=== PATIENT | female | born 1990 | race Caucasian/White ===

== ENCOUNTER 2017-06-04 12:18 | Inpatient (IN) | payer BC, OTHER ==
[2017-06-04] VITALS (48 sets, daily range): BP systolic 87–174; BP diastolic 55–101
[~2017-06-04] VITALS: Ht 165.1 cm; Wt 66.0 kg
[2017-06-04] MEDS ORDERED: D5 LR IV SOLUTION 1,000 ML IV SCH (12:42)
[2017-06-04] MEDS ORDERED: fentaNYL INJECTION 100 MCG/2 ML AMP IVP PRN (12:45)
[2017-06-04] MEDS ORDERED: MINERAL OIL CONCENTRATE 99.9% 15 ML UDC TOP PRN (12:45)
[2017-06-04 13:11] LABS: BASOPHILS % (AUTO) 0 % (0-10); EOSINOPHILS % (AUTO) 0 % (0-10); LYMPHOCYTES # (AUTO) 2.2 X 10^3 (1.0-4.0); LYMPHOCYTES % (AUTO) 15 % (12-44); MEAN CORPUSCULAR HEMOGLOBIN 33 PG (25-34); MEAN CORPUSCULAR HGB CONC 34 G/DL (32-36); MEAN CORPUSCULAR VOLUME 95 FL (80-99); MEAN PLATELET VOLUME 10.1 FL (7.4-10.4); MONOCYTES # (AUTO) 1.1 X 10^3 (0.0-1.0); MONOCYTES % (AUTO) 8 % (0-12); NEUTROPHILS # (AUTO) 11.2 X 10^3 (1.8-7.8); NEUTROPHILS % (AUTO) 77 % (42-75); PLATELET COUNT 239 10^3/uL (130-400); RED BLOOD COUNT 3.78 10^6/uL (4.35-5.85); RED CELL DISTRIBUTION WIDTH 12.9 % (10.0-14.5); WHITE BLOOD COUNT 14.5 10^3/uL (4.3-11.0)
[2017-06-04] MEDS ORDERED: SUFENTA 0.6MCG/ML BUPIVA 0.125 100 ML ONE (13:37)
[2017-06-04 13:56] LABS: BAND NEUTROPHILS 3 %; BASOPHILS % (MANUAL) 0 %; EOSINOPHILS % (MANUAL) 0 %; LYMPHOCYTES % (MANUAL) 14 %; MYELOCYTES % 1 %; NEUTROPHILS % (MANUAL) 76 %
[2017-06-04] MEDS ORDERED: CATHETER FLUSH 10 ML SYR IV SCH (14:00)
[2017-06-04] MEDS ORDERED: LIDOCAINE PF 2% 5 ML (XYLOCAINE) VIAL ONE (14:06)
[2017-06-04] MEDS ORDERED: BUPIVACAINE 0.25% 30 ML (SENSORCAINE) VIAL ONE (14:06)
[2017-06-04] MEDS ORDERED: fentaNYL INJECTION 100 MCG/2 ML AMP ONE (14:06)
--- NOTE | 2017-06-04 14:19 | History & Physical-OB ---
OB - Chief Complaint & HPI Date/Time Date of Admission: Date of Admission: Jun 04, 2017 at 12:40 Time Seen by Provider: 14:00 Chief Complaint/History OB-Reason for Admission/Chief: Onset of Labor Hx : 2 Hx Para: 0 Expected Date of Delivery: Jun 05, 2017 Gestational Age in Weeks: 39 Gestational Age in Days: 6 Other reason for admission: Jennyfer is a 26 y/o @ 39w6d who presents in early labor. Has had CTX off/on all night and then returned this AM, every 3 mins upon admission. No LOF VB. Fetus is active. uncomplicated. History of Labs A+ Antibody neg RI Hep B neg Hep C neg HIV neg RPR NR GC/CT neg/neg GBS neg Allergies and Home Medications Allergies Coded Allergies: Penicillins (Verified Allergy, Unknown, 06/04/17) tramadol (Verified Allergy, Unknown, 06/04/17) OB - History Hx of Present Care: Yes Ultrasounds: Normal mid trimester US Obstetrical Complications: Other (anemia (on iron)) Medical Complications: None Information Induced Hypertension: No Maternal Gestational Diabetes: No Hemorrhage: No Obstetrical History Hx : 2 Hx Para: 0 Hx Termination: Yes Patient Past Medical History non-contributory Social History/Family History HIV/AIDS: No Recent Infectious Disease Expo: No Alcohol Use: Denies Use Smoking Cessation: Never smoker Immunizations Tetanus Booster (TDap): Less than 5yrs Rubella: immune RPR/VDRL: Negative GBS Status: Negative HBsAG: Negative OB - Admission Exam Physical Exam Time Seen by Provider: 14:00 Vitals: see gun examiner HEENT: NCAT Cervical Dilatation: 2cm Effacement: 100% Station: -1 Membranes: Intact Heart Rate: 130's Accelerations: Accelerations Present Decelerations: No Decelerations Short Term Variability: Present Fdc Variability: Average (6-25) Contractions on Admission: < 5 Minutes Apart Labs Laboratory Tests Test 06/04/17 13:00 Range/Units White Blood Count 14.5 H 4.3-11.0 10^3/uL Red Blood Count 3.78 L 4.35-5.85 10^6/uL Hemoglobin 12.3 11.5-16.0 G/DL Hematocrit 36 35-52 % Mean Corpuscular Volume 95 80-99 FL Mean Corpuscular Hemoglobin 33 25-34 PG Mean Corpuscular Hemoglobin Concent 34 32-36 G/DL Red Cell Distribution Width 12.9 10.0-14.5 % Platelet Count 239 130-400 10^3/uL Mean Platelet Volume 10.1 7.4-10.4 FL Neutrophils (%) (Auto) 77 H 42-75 % Lymphocytes (%) (Auto) 15 12-44 % Monocytes (%) (Auto) 8 0-12 % Eosinophils (%) (Auto) 0 0-10 % Basophils (%) (Auto) 0 0-10 % Neutrophils # (Auto) 11.2 H 1.8-7.8 X 10^3 Lymphocytes # (Auto) 2.2 1.0-4.0 X 10^3 Monocytes # (Auto) 1.1 H 0.0-1.0 X 10^3 Eosinophils # (Auto) 0.0 0.0-0.3 10^3/uL Basophils # (Auto) 0.0 0.0-0.1 10^3/uL Neutrophils % (Manual) 76 % Lymphocytes % (Manual) 14 % Monocytes % (Manual) 6 % Eosinophils % (Manual) 0 % Basophils % (Manual) 0 % Myelocytes % 1 % Band Neutrophils 3 % Blood Morphology Comment NORMAL OB - Assessment/Plan/Diagnosis Plan Other Plan 26 y/o @ 39w6d with active labor, GBS neg Rh+ RI Anemia on iron, Hgb 12.3 upon admission Epidural for analgesia per pt request Will plan to [facility] for augmentation ASVD Peds Dr. Ng in [place], will need rn lactation consultant no-local provider for peds care PRISCILLA BRENNAN MD Jun 04, 2017 14:19
[2017-06-04] MEDS ORDERED: LACTATED RINGERS 1,000 ML IV ONE (14:38)
[2017-06-04] MEDS ORDERED: ONDANSETRON 4 MG/2 ML (SDV) Z0FRAN IV PRN (14:45)
[2017-06-04] MEDS ORDERED: NALOXONE 0.4 MG/ML 1 ML (NARCAN) VIAL IV PRN (14:45)
[2017-06-04] MEDS ORDERED: EPIDURAL (SUFENTA 0.6MCG/ML BUPIVA 0.125%) 100 ML BAG EPI SCH (14:45)
[2017-06-04] MEDS ORDERED: CATHETER FLUSH 10 ML SYR IV PRN (14:45)
[2017-06-04] MEDS ORDERED: diphenhydrAMINE 50 MG/ML INJ (BENADRYL) IV PRN (14:45)
[2017-06-04] MEDS ORDERED: OXYTOCIN/NORMAL SALINE 500 ML IV ONE ×2 (15:35→20:52)
[2017-06-04] MEDS ORDERED: LIDOCAINE/EPI 1%-1:200,000 (XYLOCAINE) 30 ML VIAL ONE (15:35)
[2017-06-04] MEDS ORDERED: TERBUTALINE INJ 1 MG/ML (BRETHINE) AMP ONE (16:55)
[2017-06-04] MEDS ORDERED: FAMOTIDINE 20MG/2ML IV (PEPCID) IVP ONE (19:15)
[2017-06-04] MEDS ORDERED: LACTATED RINGERS 1,000 ML IV SCH (20:30)
[2017-06-04] MEDS: OXYTOCIN/NORMAL SALINE 500 ML IV SCH ×2 (20:38→21:10)
--- NOTE | 2017-06-04 20:57 | OB Labor & Delivery Record ---
Vag Delivery Note Vag Delivery Note Date of Delivery: 06/04/17 Preoperative Diagnosis: Jennyfer Nagel is a 26 y/o @ 39w6d with active labor, GBS neg Postoperative Diagnosis: Same Surgeon: Priscilla Guzman MD Anesthesia: Epidural Delivery Type: Spontaneous vaginal delivery Findings: Viable male , apgars 9/9, weight 8lb2oz Lacerations: first degree perineal, right labial Intact placenta with 3 vessel cord. No nuchal cord, body cord or shoulder dystocia Estimated Blood Loss: 400 ml Complications: None Condition: Stable Description of Procedure: The patient is a 26 y/o who presented @ 39w6d with contractions and found to be in active labor. She was admitted and informed consent was obtained. Her labor course was remarkable for [facility] with clear fluid and epidural for analgesia. She progressed to complete dilatation and began to push. She was then set up for delivery. The infant's head was delivered atraumatically in the occiput anterior position. The shoulders and remainder of the infant's body were then delivered without difficulty. Upon delivery, the head was held below the level of the perineum and the mouth and nares were bulb suctioned. The cord was doubly clamped and cut after a pause of 30-60 seconds while on the mother's abdomen. An intact placenta with 3-vessel cord delivered via [place] and there was found to be minimal bleeding. Vigorous fundal massage was performed and the fundus was found to be firm. IV oxytocin was given. Examination of the vagina and perineum revealed a small first degree perineal laceration and right labial laceration repaired in the usual fashion with 3-0 vicryl suture. Following the repair, sponge, instrument and needle counts were correct. Mom and baby were both in stable condition in the labor suite. Vitals - Labs Vital Signs - I&O Vital Signs Date Time Temp Pulse Resp B/P (MAP) Pulse Ox O2 Delivery O2 Flow Rate FiO2 06/04/17 18:55 83 18 118/64 100 Room Air 06/04/17 18:43 90 18 111/66 100 Non Rebreather 06/04/17 18:25 86 18 119/68 100 Non Rebreather 06/04/17 18:10 83 18 115/61 99 Room Air 06/04/17 17:56 98.0 85 18 120/66 99 Room Air 7/8/17 17:40 96 18 125/67 99 Room Air 7/8/17 17:25 96 18 123/72 100 Room Air 7/8/17 17:10 96 18 130/72 Room Air 7/8/17 16:55 98 18 119/74 98 Room Air 7/8/17 16:41 98 18 119/74 98 Room Air 7/8/17 16:25 94 18 116/71 98 Room Air 7/8/17 16:11 99 18 119/78 99 Room Air 7/8/17 15:52 97.9 90 18 116/74 98 Room Air 7/8/17 15:42 89 18 128/67 99 Room Air 7/8/17 15:39 91 18 128/74 Room Air 7/8/17 15:35 90 18 118/76 97 Room Air 7/8/17 15:23 90 18 126/75 99 Room Air 7/8/17 15:17 87 18 135/84 99 Room Air 7/8/17 15:12 95 18 135/74 99 Room Air 7/8/17 15:07 85 18 128/72 100 Room Air 7/8/17 15:02 91 18 121/80 100 Room Air 7/8/17 14:59 89 18 115/72 98 Room Air 7/8/17 14:56 85 18 119/76 98 Room Air 7/8/17 14:52 87 18 121/72 98 Room Air 7/8/17 14:50 90 18 125/71 98 Room Air 7/8/17 14:48 88 18 123/70 98 Room Air 7/8/17 14:45 86 18 121/66 Room Air 7/8/17 14:42 85 18 119/66 97 Room Air 7/8/17 14:38 89 18 117/65 98 Room Air 7/8/17 14:32 95 18 122/75 98 Room Air 7/8/17 14:26 100 18 143/85 100 Room Air 8/17 14:05 99 22 138/89 78/17 13:35 117 22 138/101 78/17 13:05 100 18 128/79 7/8/17 12:35 98.6 105 18 126/78 Labs Laboratory Tests 06/04/17 13:00: White Blood Count 14.5H, Red Blood Count 3.78L, Hemoglobin 12.3, Hematocrit 36, Mean Corpuscular Volume 95, Mean Corpuscular Hemoglobin 33, Mean Corpuscular Hemoglobin Concent 34, Red Cell Distribution Width 12.9, Platelet Count 239, Mean Platelet Volume 10.1, Neutrophils (%) (Auto) 77H, Lymphocytes (%) (Auto) 15 , Monocytes (%) (Auto) 8, Eosinophils (%) (Auto) 0, Basophils (%) (Auto) 0, Neutrophils # (Auto) 11.2H, Lymphocytes # (Auto) 2.2, Monocytes # (Auto) 1.1H, Eosinophils # (Auto) 0.0, Basophils # (Auto) 0.0, Neutrophils % (Manual) 76, Lymphocytes % (Manual) 14, Monocytes % (Manual) 6, Eosinophils % (Manual) 0, Basophils % (Manual) 0, Myelocytes % 1, Band Neutrophils 3, Blood Morphology Comment NORMAL PRISCILLA GUZMAN MD Jun 04, 2017 20:57
[2017-06-04] MEDS ORDERED: HYDROcodone/APAP 5 MG/325 MG (LORTAB) TAB PO PRN (22:15)
[2017-06-04] MEDS ORDERED: WITCH HAZEL(TUCKS) 40 EA JAR TOP PRN (22:15)
[2017-06-04] MEDS ORDERED: BENZOCAINE/MENTHOL (DERMOPLAST) 56 ML CAN TP PRN (22:15)
[2017-06-04] MEDS: IBUPROFEN 600 MG (MOTRIN) TAB PO SCH (22:24)
[2017-06-05 04:00] VITALS: BP 97/56
[2017-06-05] MEDS: IBUPROFEN 600 MG (MOTRIN) TAB PO SCH ×4 (04:06→23:01)
[2017-06-05] MEDS ORDERED: CATHETER FLUSH 10 ML SYR IV SCH (06:00)
[2017-06-05 07:11] LABS: BASOPHILS % (AUTO) 0 % (0-10); EOSINOPHILS % (AUTO) 0 % (0-10); LYMPHOCYTES % (AUTO) 10 % (12-44); MEAN CORPUSCULAR HEMOGLOBIN 32 PG (25-34); MEAN CORPUSCULAR HGB CONC 34 G/DL (32-36); MEAN CORPUSCULAR VOLUME 96 FL (80-99); MONOCYTES % (AUTO) 10 % (0-12); NEUTROPHILS # (AUTO) 15.7 X 10^3 (1.8-7.8); NEUTROPHILS % (AUTO) 80 % (42-75); PLATELET COUNT 200 10^3/uL (130-400); RED BLOOD COUNT 3.24 10^6/uL (4.35-5.85); RED CELL DISTRIBUTION WIDTH 12.6 % (10.0-14.5); WHITE BLOOD COUNT 19.7 10^3/uL (4.3-11.0)
--- NOTE | 2017-06-05 07:32 | Anesthesia-Regional Post-Op ---
Regional Patient Condition Mental Status: Alert, Oriented x3 Circulation: Same as Pre-Op Headache: Absent Sensation: Full Recovery Motor Block: Absent Post Op Complications Complications None Follow Up Care/Instructions Patient Instructions None needed. Anesthesia/Patient Condition Patient is doing well, no complaints, stable vital signs, no apparent adverse anesthesia problems. No complications reported per nursing. [place] home [place] [facility] [place]: No LUIS GRANADOS CRNA Jun 05, 2017 07:32
[2017-06-05 08:00] VITALS: BP 113/67
[2017-06-05] MEDS: DOCUSATE SODIUM 100 MG (COLACE) CAP PO SCH ×2 (09:20→20:46)
[2017-06-05] MEDS: PRENATAL VITAMIN 1 EA TAB PO SCH (09:20)
--- NOTE | 2017-06-05 11:05 | Postpartum Progress Note ---
Note Note Day # 1 Subjective: Patient is without complaints. Ambulating, voiding. Tolerating a regular diet without nausea or vomiting. Normal lochia. Pain is well controlled with oral pain medications. Bottle feeding. Objective: VS - Last 72 Hours, by Label 06/04/17 06/04/17 06/04/17 06/04/17 12:35 13:05 13:35 14:05 Temp 98.6 Pulse 105 100 117 99 Resp 18 18 22 22 B/P (MAP) 126/78 128/79 138/101 138/89 06/04/17 06/04/17 06/04/17 06/04/17 14:26 14:32 14:38 14:42 Pulse 100 95 89 85 Resp 18 18 18 18 B/P (MAP) 143/85 122/75 117/65 119/66 Pulse Ox 100 98 98 97 O2 Delivery Room Air Room Air Room Air Room Air 06/04/17 06/04/17 06/04/17 06/04/17 14:45 14:48 14:50 14:52 Pulse 86 88 90 87 Resp 18 18 18 18 B/P (MAP) 121/66 123/70 125/71 121/72 Pulse Ox 98 98 98 O2 Delivery Room Air Room Air Room Air Room Air 06/04/17 06/04/17 06/04/17 06/04/17 14:56 14:59 15:02 15:07 Pulse 85 89 91 85 Resp 18 18 18 18 B/P (MAP) 119/76 115/72 121/80 128/72 Pulse Ox 98 98 100 100 O2 Delivery Room Air Room Air Room Air Room Air 06/04/17 06/04/17 06/04/17 06/04/17 15:12 15:17 15:23 15:35 Pulse 95 87 90 90 Resp 18 18 18 18 B/P (MAP) 135/74 135/84 126/75 118/76 Pulse Ox 99 99 99 97 O2 Delivery Room Air Room Air Room Air Room Air 06/04/17 06/04/17 06/04/17 06/04/17 15:39 15:42 15:52 16:11 Temp 97.9 Pulse 91 89 90 99 Resp 18 18 18 18 B/P (MAP) 128/74 128/67 116/74 119/78 Pulse Ox 99 98 99 O2 Delivery Room Air Room Air Room Air Room Air 06/04/17 06/04/17 06/04/17 06/04/17 16:25 16:41 16:55 17:10 Pulse 94 98 98 96 Resp 18 18 18 18 B/P (MAP) 116/71 119/74 119/74 130/72 Pulse Ox 98 98 98 O2 Delivery Room Air Room Air Room Air Room Air 06/04/17 06/04/17 06/04/17 06/04/17 17:25 17:40 17:56 18:10 Temp 98.0 Pulse 96 96 85 83 Resp 18 18 18 18 B/P (MAP) 123/72 125/67 120/66 115/61 Pulse Ox 100 99 99 99 O2 Delivery Room Air Room Air Room Air Room Air 06/04/17 06/04/17 06/04/17 06/04/17 18:25 18:43 18:55 19:15 Pulse 86 90 83 91 Resp 18 18 18 18 B/P (MAP) 119/68 111/66 118/64 122/71 Pulse Ox 100 100 100 100 O2 Delivery Non Rebreather Non Rebreather Room Air Room Air 06/04/17 06/04/17 06/04/17 06/04/17 19:30 19:45 20:00 20:05 Temp 98.4 Pulse 86 102 118 Resp 18 18 18 B/P (MAP) 121/66 134/83 Pulse Ox 100 100 100 100 O2 Delivery Room Air Room Air Room Air Non Rebreather O2 Flow Rate 15.00 06/04/17 06/04/17 06/04/17 06/04/17 20:10 20:15 20:20 20:25 Pulse 92 Resp 18 B/P (MAP) 127/79 Pulse Ox 100 100 100 O2 Delivery Non Rebreather Non Rebreather Room Air Room Air O2 Flow Rate 15.00 15.00 06/04/17 06/04/17 06/04/17 06/04/17 20:31 20:40 20:45 20:54 Pulse 133 131 110 Resp 18 18 18 B/P (MAP) 131/77 174/87 88/55 87/56 O2 Delivery Room Air Room Air Room Air 06/04/17 06/04/17 06/04/17 06/04/17 21:11 21:24 21:39 21:54 Temp 97.7 Pulse 101 97 91 106 Resp 18 18 18 18 B/P (MAP) 116/67 112/62 114/62 115/69 O2 Delivery Room Air Room Air Room Air Room Air 06/04/17 06/05/17 06/05/17 23:38 04:00 08:00 Temp 98.2 97.8 96.9 Pulse 96 77 87 Resp 18 18 20 B/P (MAP) 101/63 97/56 113/67 Pulse Ox 98 99 99 O2 Delivery Room Air Room Air Room Air Physical Exam: General - Alert and oriented, no apparent distress Abdomen - Soft, appropriately tender to palpation, non-distended, fundus firm at umbilicus Extremities - no edema, negative Radha's bilaterally Laboratory Tests Test 06/04/17 13:00 06/05/17 07:02 Range/Units White Blood Count 14.5 H 19.7 H 4.3-11.0 10^3/uL Red Blood Count 3.78 L 3.24 L 4.35-5.85 10^6/uL Hemoglobin 12.3 10.5 L 11.5-16.0 G/DL Hematocrit 36 31 L 35-52 % Mean Corpuscular Volume 95 96 80-99 FL Mean Corpuscular Hemoglobin 33 32 25-34 PG Mean Corpuscular Hemoglobin Concent 34 34 32-36 G/DL Red Cell Distribution Width 12.9 12.6 10.0-14.5 % Platelet Count 239 200 130-400 10^3/uL Mean Platelet Volume 10.1 10.0 7.4-10.4 FL Neutrophils (%) (Auto) 77 H 80 H 42-75 % Lymphocytes (%) (Auto) 15 10 L 12-44 % Monocytes (%) (Auto) 8 10 0-12 % Eosinophils (%) (Auto) 0 0 0-10 % Basophils (%) (Auto) 0 0 0-10 % Neutrophils # (Auto) 11.2 H 15.7 H 1.8-7.8 X 10^3 Lymphocytes # (Auto) 2.2 2.0 1.0-4.0 X 10^3 Monocytes # (Auto) 1.1 H 2.0 H 0.0-1.0 X 10^3 Eosinophils # (Auto) 0.0 0.0 0.0-0.3 10^3/uL Basophils # (Auto) 0.0 0.0 0.0-0.1 10^3/uL Neutrophils % (Manual) 76 % Lymphocytes % (Manual) 14 % Monocytes % (Manual) 6 % Eosinophils % (Manual) 0 % Basophils % (Manual) 0 % Myelocytes % 1 % Band Neutrophils 3 % Blood Morphology Comment NORMAL Assessment: 26 y/o post- day # 1, status post spontaneous vaginal delivery. Recovering well, hemodynamically stable Acute blood loss anemia Hgb 10.5 Rh+ RI Plan: Routine care. Discussed conservative measures for breast engorgement as she does not desire to breast feed. Encourage ambulation. Ferrous sulfate supplementation. Plan for discharge tomorrow. Vitals - Labs Vital Signs - I&O Vital Signs Date Time Temp Pulse Resp B/P (MAP) Pulse Ox O2 Delivery O2 Flow Rate FiO2 06/05/17 08:00 96.9 87 20 113/67 99 Room Air 06/05/17 04:00 97.8 77 18 97/56 99 Room Air 06/04/17 23:38 98.2 96 18 101/63 98 Room Air 06/04/17 21:54 106 18 115/69 Room Air 06/04/17 21:39 91 18 114/62 Room Air 06/04/17 21:24 97.7 97 18 112/62 Room Air 06/04/17 21:11 101 18 116/67 Room Air 06/04/17 20:54 110 18 87/56 Room Air 06/04/17 20:45 88/55 06/04/17 20:40 131 18 174/87 Room Air 06/04/17 20:31 133 18 131/77 Room Air 06/04/17 20:25 Room Air 06/04/17 20:20 100 Room Air 06/04/17 20:15 100 Non Rebreather 15.00 06/04/17 20:10 92 18 127/79 100 Non Rebreather 15.00 06/04/17 20:05 100 Non Rebreather 15.00 06/04/17 20:00 118 18 100 Room Air 06/04/17 19:45 102 18 134/83 100 Room Air 06/04/17 19:30 98.4 86 18 121/66 100 Room Air 06/04/17 19:15 91 18 122/71 100 Room Air 06/04/17 18:55 83 18 118/64 100 Room Air 7/8/17 18:43 90 18 111/66 100 Non Rebreather 7/8/17 18:25 86 18 119/68 100 Non Rebreather 7/8/17 18:10 83 18 115/61 99 Room Air 7/8/17 17:56 98.0 85 18 120/66 99 Room Air 7/8/17 17:40 96 18 125/67 99 Room Air 7/8/17 17:25 96 18 123/72 100 Room Air 7/8/17 17:10 96 18 130/72 Room Air 7/8/17 16:55 98 18 119/74 98 Room Air 7/8/17 16:41 98 18 119/74 98 Room Air 7/8/17 16:25 94 18 116/71 98 Room Air 7/8/17 16:11 99 18 119/78 99 Room Air 7/8/17 15:52 97.9 90 18 116/74 98 Room Air 7/8/17 15:42 89 18 128/67 99 Room Air 7/8/17 15:39 91 18 128/74 Room Air 7/8/17 15:35 90 18 118/76 97 Room Air 7/8/17 15:23 90 18 126/75 99 Room Air 7/8/17 15:17 87 18 135/84 99 Room Air 7/8/17 15:12 95 18 135/74 99 Room Air 7/8/17 15:07 85 18 128/72 100 Room Air 7/8/17 15:02 91 18 121/80 100 Room Air 7/8/17 14:59 89 18 115/72 98 Room Air 7/8/17 14:56 85 18 119/76 98 Room Air 7/8/17 14:52 87 18 121/72 98 Room Air 7/8/17 14:50 90 18 125/71 98 Room Air 7/8/17 14:48 88 18 123/70 98 Room Air 7/8/17 14:45 86 18 121/66 Room Air 7/8/17 14:42 85 18 119/66 97 Room Air 7/8/17 14:38 89 18 117/65 98 Room Air 7/8/17 14:32 95 18 122/75 98 Room Air 7/8/17 14:26 100 18 143/85 100 Room Air 7/8/17 14:05 99 22 138/89 7/8/17 13:35 117 22 138/101 06/04/17 13:05 100 18 128/79 06/04/17 12:35 98.6 105 18 126/78 I & O 06/05/17 07:00 Intake Total 3800 ml Output Total 225 ml Balance 3575 ml Labs Laboratory Tests 06/04/17 13:00: White Blood Count 14.5H, Red Blood Count 3.78L, Hemoglobin 12.3, Hematocrit 36, Mean Corpuscular Volume 95, Mean Corpuscular Hemoglobin 33, Mean Corpuscular Hemoglobin Concent 34, Red Cell Distribution Width 12.9, Platelet Count 239, Mean Platelet Volume 10.1, Neutrophils (%) (Auto) 77H, Lymphocytes (%) (Auto) 15 , Monocytes (%) (Auto) 8, Eosinophils (%) (Auto) 0, Basophils (%) (Auto) 0, Neutrophils # (Auto) 11.2H, Lymphocytes # (Auto) 2.2, Monocytes # (Auto) 1.1H, Eosinophils # (Auto) 0.0, Basophils # (Auto) 0.0, Neutrophils % (Manual) 76, Lymphocytes % (Manual) 14, Monocytes % (Manual) 6, Eosinophils % (Manual) 0, Basophils % (Manual) 0, Myelocytes % 1, Band Neutrophils 3, Blood Morphology Comment NORMAL 06/05/17 07:02: White Blood Count 19.7H, Red Blood Count 3.24L, Hemoglobin 10.5L, Hematocrit 31L , Mean Corpuscular Volume 96, Mean Corpuscular Hemoglobin 32, Mean Corpuscular Hemoglobin Concent 34, Red Cell Distribution Width 12.6, Platelet Count 200, Mean Platelet Volume 10.0, Neutrophils (%) (Auto) 80H, Lymphocytes (%) (Auto) 10L, Monocytes (%) (Auto) 10, Eosinophils (%) (Auto) 0, Basophils (%) (Auto) 0, Neutrophils # (Auto) 15.7H, Lymphocytes # (Auto) 2.0, Monocytes # (Auto) 2.0H, Eosinophils # (Auto) 0.0, Basophils # (Auto) 0.0 PRISCILLA BRENNAN MD Jun 05, 2017 11:05
[2017-06-05] MEDS ORDERED: IBUP-1773 PO (11:07)
[2017-06-05] MEDS ORDERED: HYDR-3812 PO (11:07)
[2017-06-05] MEDS ORDERED: DOCU100C37 PO (11:07)
[2017-06-05] MEDS ORDERED: FERR-74 PO (11:07)
--- NOTE | 2017-06-05 11:07 | Discharge Inst-Women's Service ---
Discharge Inst-Women's Serv Depart Medication/Instructions New, Converted or Re-Newed RX: RX on Chart Final Diagnosis TIUP, active labor, Consults/Follow Up Additional Follow Up: Yes Orders/Referrals [address] Kumar Activity Activity: Activity as Tolerated Driving Instructions: You May Drive NO SMOKING: NO SMOKING Nothing Inside Vagina: No Douching, No [place], No Tampons Diet Discharge Diet: No Restrictions Symptoms to Report to : Bleeding Excessive, Pain Increased, Fever Over 101 Degrees F, Pain/Pressure in Chest, Vaginal Bleeding Increase, Dizziness/Fainting , Nausea/Vomiting, Shortness of Breath For Any Problems or Questions: Contact Your Physician, Go to Emergency Room PRISCILLA BRENNAN MD Jun 05, 2017 11:07
[2017-06-05 15:00] VITALS: BP 110/66
[2017-06-05 20:45] VITALS: BP 111/67
[2017-06-06 02:00] VITALS: BP 85/47
[2017-06-06] MEDS: IBUPROFEN 600 MG (MOTRIN) TAB PO SCH (06:57)
[2017-06-06] MEDS ORDERED: FERROUS SULF 325 MG (IRON) TAB PO SCH (07:00)
--- NOTE | 2017-06-06 07:24 | Postpartum Progress Note ---
Note Note Day # 2 Subjective: Patient is without complaints. Ambulating, voiding. Tolerating a regular diet without nausea or vomiting. Normal lochia. Pain is well controlled with oral pain medications. Bottle feeding. Objective: VS - Last 72 Hours, by Label 06/04/17 06/04/17 06/04/17 06/04/17 12:35 13:05 13:35 14:05 Temp 98.6 Pulse 105 100 117 99 Resp 18 18 22 22 B/P (MAP) 126/78 128/79 138/101 138/89 06/04/17 06/04/17 06/04/17 06/04/17 14:26 14:32 14:38 14:42 Pulse 100 95 89 85 Resp 18 18 18 18 B/P (MAP) 143/85 122/75 117/65 119/66 Pulse Ox 100 98 98 97 O2 Delivery Room Air Room Air Room Air Room Air 06/04/17 06/04/17 06/04/17 06/04/17 14:45 14:48 14:50 14:52 Pulse 86 88 90 87 Resp 18 18 18 18 B/P (MAP) 121/66 123/70 125/71 121/72 Pulse Ox 98 98 98 O2 Delivery Room Air Room Air Room Air Room Air 06/04/17 06/04/17 06/04/17 06/04/17 14:56 14:59 15:02 15:07 Pulse 85 89 91 85 Resp 18 18 18 18 B/P (MAP) 119/76 115/72 121/80 128/72 Pulse Ox 98 98 100 100 O2 Delivery Room Air Room Air Room Air Room Air 06/04/17 06/04/17 06/04/17 06/04/17 15:12 15:17 15:23 15:35 Pulse 95 87 90 90 Resp 18 18 18 18 B/P (MAP) 135/74 135/84 126/75 118/76 Pulse Ox 99 99 99 97 O2 Delivery Room Air Room Air Room Air Room Air 06/04/17 06/04/17 06/04/17 06/04/17 15:39 15:42 15:52 16:11 Temp 97.9 Pulse 91 89 90 99 Resp 18 18 18 18 B/P (MAP) 128/74 128/67 116/74 119/78 Pulse Ox 99 98 99 O2 Delivery Room Air Room Air Room Air Room Air 06/04/17 06/04/17 06/04/17 06/04/17 16:25 16:41 16:55 17:10 Pulse 94 98 98 96 Resp 18 18 18 18 B/P (MAP) 116/71 119/74 119/74 130/72 Pulse Ox 98 98 98 O2 Delivery Room Air Room Air Room Air Room Air 06/04/17 06/04/17 06/04/17 06/04/17 17:25 17:40 17:56 18:10 Temp 98.0 Pulse 96 96 85 83 Resp 18 18 18 18 B/P (MAP) 123/72 125/67 120/66 115/61 Pulse Ox 100 99 99 99 O2 Delivery Room Air Room Air Room Air Room Air 06/04/17 06/04/17 06/04/17 06/04/17 18:25 18:43 18:55 19:15 Pulse 86 90 83 91 Resp 18 18 18 18 B/P (MAP) 119/68 111/66 118/64 122/71 Pulse Ox 100 100 100 100 O2 Delivery Non Rebreather Non Rebreather Room Air Room Air 06/04/17 06/04/17 06/04/17 06/04/17 19:30 19:45 20:00 20:05 Temp 98.4 Pulse 86 102 118 Resp 18 18 18 B/P (MAP) 121/66 134/83 Pulse Ox 100 100 100 100 O2 Delivery Room Air Room Air Room Air Non Rebreather O2 Flow Rate 15.00 06/04/17 06/04/17 06/04/17 06/04/17 20:10 20:15 20:20 20:25 Pulse 92 Resp 18 B/P (MAP) 127/79 Pulse Ox 100 100 100 O2 Delivery Non Rebreather Non Rebreather Room Air Room Air O2 Flow Rate 15.00 15.00 06/04/17 06/04/17 06/04/17 06/04/17 20:31 20:40 20:45 20:54 Pulse 133 131 110 Resp 18 18 18 B/P (MAP) 131/77 174/87 88/55 87/56 O2 Delivery Room Air Room Air Room Air 06/04/17 06/04/17 06/04/17 06/04/17 21:11 21:24 21:39 21:54 Temp 97.7 Pulse 101 97 91 106 Resp 18 18 18 18 B/P (MAP) 116/67 112/62 114/62 115/69 O2 Delivery Room Air Room Air Room Air Room Air 06/04/17 06/05/17 06/05/17 06/05/17 23:38 04:00 08:00 15:00 Temp 98.2 97.8 96.9 97.9 Pulse 96 77 87 80 Resp 18 18 20 20 B/P (MAP) 101/63 97/56 113/67 110/66 Pulse Ox 98 99 99 100 O2 Delivery Room Air Room Air Room Air Room Air 06/05/17 20:45 Temp 97.6 Pulse 82 Resp 20 B/P (MAP) 111/67 Pulse Ox 100 O2 Delivery Room Air Physical Exam: General - Alert and oriented, no apparent distress Abdomen - Soft, appropriately tender to palpation, non-distended, fundus firm at umbilicus Extremities - no edema, negative Radha's bilaterally no new labs Assessment: 26 y/o post- day # 2, status post spontaneous vaginal delivery. Recovering well, hemodynamically stable Acute blood loss anemia Hgb 10.5 Rh+ RI Plan: Routine care. Encourage ambulation. Ferrous sulfate supplementation. Plan for discharge today, will f/u with Dr. Kumar in 6 weeks. Vitals - Labs Vital Signs - I&O Vital Signs Date Time Temp Pulse Resp B/P (MAP) Pulse Ox O2 Delivery O2 Flow Rate FiO2 06/05/17 20:45 97.6 82 20 111/67 100 Room Air 06/05/17 15:00 97.9 80 20 110/66 100 Room Air 06/05/17 08:00 96.9 87 20 113/67 99 Room Air I & O 06/06/17 07:00 Intake Total 1500 ml Output Total 750 ml Balance 750 ml PRISCILLA BRENNAN MD Jun 06, 2017 07:24
[2017-06-06 08:15] VITALS: BP 101/60
[2017-06-06] MEDS: PRENATAL VITAMIN 1 EA TAB PO SCH (08:26)
[2017-06-06] MEDS: DOCUSATE SODIUM 100 MG (COLACE) CAP PO SCH (08:26)
[2017-06-06 11:45] VITALS: BP 101/60
== END 2017-06-06 11:45 | disposition home or self-care (01) | DRG 775 ==
LOC: WSo 12:18 → LDRP 12:19 → WSo 12:40 → LDRP 12:40
PROVIDERS: ADMIT Obstetrics & Gynecology; ATTEND Obstetrics & Gynecology
PROC: 0HQ9XZZ Repair Perineum Skin, External Approach (ICD-10-PCS; principal; 2017-06-04)
PROC: 10E0XZZ Delivery of Products of Conception, External Approach (ICD-10-PCS; 2017-06-04)
DX: Z3A.39 39 weeks gestation of pregnancy; O70.0 First degree perineal laceration during delivery; D50.0 Iron deficiency anemia secondary to blood loss (chronic); O90.81 Anemia of the puerperium; O99.02 Anemia complicating childbirth; Z37.0 Single live birth
CPT/HCPCS: 36415; 85007; 85025; 85027; 86850; 86900; 86901; 99212

== ENCOUNTER → 2019-02-27 | Outpatient (CLI) | payer BC ==
[~2019-02-27] MED LIST: ACHD5005 PO; DOCU100C37 PO; FERR325T18 PO; IBUP-1773 PO
--- NOTE | 2019-02-27 12:23 | Diagnostic Imaging Report ---
INDICATION: Supervision during normal . TECHNIQUE: Multiple real-time grayscale images were obtained over the gravid uterus. COMPARISON: None. FINDINGS: There is presence of single viable intrauterine currently in a cephalic presentation. Normal amount of amniotic fluid. Placenta is posterior and without findings to suggest previa. Visualized anatomical structures including the kidneys, bladder, stomach, intracranial structures, four-chamber heart, three-vessel cord and cord insertion site, as well as spine appearing unremarkable. The cervical length at 5.2 cm. Maternal ovaries not visualized. Biometrical measurements are as follows: Biparietal 4.62 cm, age 20 weeks 0 days. Head circumference 17.78 cm, age 20 weeks 2 days. Abdominal circumference 14.79 cm, age 20 weeks 1 days. Femur length 3.18 cm, age 20 weeks 0 days. Sonographic estimate age: 20 weeks 1 days. Sonographic estimated date of delivery: 07/16/2019. Estimated Weight: 327 gm (+/- 48 gm). LMP percentile: 24%. heart rate: 142 beats per minute. number: 1 of 1. IMPRESSION: 1. Single viable intrauterine currently in cephalic presentation. Sonographic estimated age 20 weeks 1 day for an estimated date of delivery 07/16/2019. No abnormality is demonstrated at this time. Dictated by: Dictated on workstation # [id number]
== END ==
LOC: RAD 10:39
PROVIDERS: ATTEND Obstetrics & Gynecology
DX: Z34.92 Encounter for supervision of normal pregnancy, unspecified, second trimester (principal); Z3A.20 20 weeks gestation of pregnancy
CPT/HCPCS: 76805

== ENCOUNTER 2019-07-04 09:16 | Inpatient (IN) | payer BC ==
[~2019-07-04] VITALS: Ht 165.1 cm; Wt 65.8 kg
[2019-07-04] VITALS (34 sets, daily range): BP systolic 106–136; BP diastolic 52–77
--- NOTE | 2019-07-04 09:20 | NUR ---
TONYA ENRIQUE presented to unit via wheelchair from ED, accompanied by [place], with c/o LABOR. TONYA ENRIQUE weighed, gowned, voided, and to bed. EFHM and TOCO applied, VS taken. TONYA ENRIQUE oriented to bed controls, call light, TV, heat, and A/C controls.
--- NOTE | 2019-07-04 09:55 | NUR ---
Dr Kumar notified of pt's admission and vag exam of 4-5cms. Orders to admit.
[2019-07-04] MEDS ORDERED: MINERAL OIL CONCENTRATE 99.9% 15 ML UDC TOP PRN (10:00)
[2019-07-04] MEDS ORDERED: D5 LR IV SOLUTION 1,000 ML IV SCH (10:00)
[2019-07-04] MEDS ORDERED: D5 LR IV SOLUTION 1,000 ML IV ONE (10:01)
[2019-07-04] MEDS ORDERED: SUFENTA 0.6MCG/ML BUPIVA 0.125 100 ML ONE (10:34)
[2019-07-04 10:48] LABS: BASOPHILS % (AUTO) 0 % (0-10); EOSINOPHILS % (AUTO) 0 % (0-10); HEMATOCRIT 34 % (35-52); HEMOGLOBIN 11.4 G/DL (11.5-16.0); LYMPHOCYTES % (AUTO) 18 % (12-44); MEAN CORPUSCULAR HGB CONC 34 G/DL (32-36); MEAN CORPUSCULAR VOLUME 96 FL (80-99); MEAN PLATELET VOLUME 10.3 FL (7.4-10.4); MONOCYTES # (AUTO) 0.9 X 10^3 (0.0-1.0); MONOCYTES % (AUTO) 8 % (0-12); NEUTROPHILS # (AUTO) 8.2 X 10^3 (1.8-7.8); NEUTROPHILS % (AUTO) 74 % (42-75); PLATELET COUNT 214 10^3/uL (130-400); WHITE BLOOD COUNT 11.1 10^3/uL (4.3-11.0)
[2019-07-04 10:52] LABS: MEAN CORPUSCULAR HEMOGLOBIN 32 PG (25-34)
[2019-07-04] MEDS ORDERED: fentaNYL INJECTION 100 MCG/2 ML AMP ONE (11:35)
--- NOTE | 2019-07-04 12:14 | History & Physical-OB ---
OB - Chief Complaint & HPI Date/Time Date of Admission: Date of Admission: Jul 04, 2019 at 09:59 Date seen by a Provider: Jul 04, 2019 Time Seen by a Provider: 12:00 Chief Complaint/History OB-Reason for Admission/Chief: Onset of Labor Hx : 3 Hx Para: 1 Expected Date of Delivery: Jul 15, 2019 Gestational Age in Weeks: 38 Admission Nurse Assessment Rev: Yes History of Labs A pos Antibody neg RI RPR NR HIV NR HBsAg NR GC neg GBS neg Allergies and Home Medications Allergies Coded Allergies: Penicillins (Verified Allergy, Unknown, 06/04/17) tramadol (Verified Allergy, Unknown, 06/04/17) Home Medications Docusate Sodium 100 Mg Capsule, 100 MG PO BID Prescribed by: PRISCILLA BRENNAN on 06/05/171106 Ferrous Sulfate 325 Mg Tablet, 325 MG PO DAILY Prescribed by: PRISCILLA BRENNAN on 06/05/17 110 Hydrocodone Bit/Acetaminophen 1 Each Tablet, 1-2 TAB PO Q4H PRN for PAIN- MODERATE Prescribed by: PRISCILLA BRENNAN on 06/05/17 110 Ibuprofen 600 Mg Tablet, 600 MG PO Q6H Prescribed by: PRISCILLA BRENNAN on 06/05/17 110 Patient Home Medication List Home Medication List Reviewed: Yes OB - History Hx of Present Care: Yes Ultrasounds: Normal mid trimester US Obstetrical Complications: Other (Abnormal quad screen) Medical Complications: None Obstetrical History Hx Termination: Yes Delivery History Adverse Rxn to Tranfusion: No (N/A) Patient Past Medical History non-contributory Social History/Family History HIV/AIDS: No Sexually Transmitted Disease: No Alcohol Use: Denies Use Recreational Drug Use: No Immunizations Hepatitis A: No Hepatitis B: No Tetanus Booster (TDap): Less than 5yrs OB - Admission Exam Physical Exam HEENT: NCAT Heart: Rhythm Normal Lungs: Clear Abdomen: Gravid Extremities: Normal Reflexes: Normal Cervical Dilatation: 5cm Effacement: 75% Station: -1 Membranes: Intact Heart Rate: 130's Accelerations: Accelerations Present Decelerations: No Decelerations Short Term Variability: Present Dirt Supervisor Variability: Average (6-25) Contractions on Admission: 6-10 Minutes Apart Labs Laboratory Tests Test 07/04/19 10:20 Range/Units White Blood Count 11.1 H 4.3-11.0 10^3/uL Red Blood Count 3.51 L 4.35-5.85 10^6/uL Hemoglobin 11.4 L 11.5-16.0 G/DL Hematocrit 34 L 35-52 % Mean Corpuscular Volume 96 80-99 FL Mean Corpuscular Hemoglobin 32 25-34 PG Mean Corpuscular Hemoglobin Concent 34 32-36 G/DL Red Cell Distribution Width 13.0 10.0-14.5 % Platelet Count 214 130-400 10^3/uL Mean Platelet Volume 10.3 7.4-10.4 FL Neutrophils (%) (Auto) 74 42-75 % Lymphocytes (%) (Auto) 18 12-44 % Monocytes (%) (Auto) 8 0-12 % Eosinophils (%) (Auto) 0 0-10 % Basophils (%) (Auto) 0 0-10 % Neutrophils # (Auto) 8.2 H 1.8-7.8 X 10^3 Lymphocytes # (Auto) 2.0 1.0-4.0 X 10^3 Monocytes # (Auto) 0.9 0.0-1.0 X 10^3 Eosinophils # (Auto) 0.0 0.0-0.3 10^3/uL Basophils # (Auto) 0.0 0.0-0.1 10^3/uL OB - Assessment/Plan/Diagnosis Assessment Assessment: active labor Admission Dx 28 yo @ 38 weeks Active labor GBS neg Abnormal Quad screen Admission Status: Inpatient Order (span 2 midnights) Reason for Inpatient Admission: Active labor at term Plan Plan: Expectant Management CAMPBELL SIERRA DO Jul 04, 2019 12:14
[2019-07-04] MEDS ORDERED: LACTATED RINGERS 1,000 ML IV ONE (13:07)
[2019-07-04] MEDS ORDERED: diphenhydrAMINE 50 MG/ML INJ (BENADRYL) IV PRN (13:15)
[2019-07-04] MEDS ORDERED: METOCLOPRAMIDE INJ 10 MG/2 ML (REGLAN) IV PRN (13:15)
[2019-07-04] MEDS ORDERED: ONDANSETRON 4 MG/2 ML (SDV) Z0FRAN IV PRN (13:15)
[2019-07-04] MEDS ORDERED: EPIDURAL (SUFENTA 0.6MCG/ML BUPIVA 0.125%) 100 ML BAG EPI PRN (13:15)
[2019-07-04] MEDS ORDERED: NALOXONE 0.4 MG/ML 1 ML (NARCAN) VIAL IV PRN ×2 (13:15)
[2019-07-04] MEDS ORDERED: OXYTOCIN/NORMAL SALINE 500 ML IV ONE (13:31)
[2019-07-04] MEDS: OXYTOCIN/NORMAL SALINE 500 ML IV SCH ×2 (13:49→17:29)
[2019-07-04] MEDS ORDERED: CATHETER FLUSH 10 ML SYR IV SCH ×2 (14:00→22:00)
[2019-07-04] MEDS ORDERED: BENZOCAINE/MENTHOL (DERMOPLAST) 56 ML CAN TP PRN (17:15)
[2019-07-04] MEDS ORDERED: DIBUCAINE (NUPERCAINAL) 1% OINT 30 GM TOP PRN (17:15)
[2019-07-04] MEDS ORDERED: HYDROcodone/APAP 5 MG/325 MG (LORTAB) TAB PO PRN (17:15)
[2019-07-04] MEDS ORDERED: TETANUS,DIPTH,PERTUSS P/F (BOOSTRIX) 0.5 ML VIAL IM ONE (17:15)
[2019-07-04] MEDS ORDERED: WITCH HAZEL(TUCKS) 40 EA JAR TOP PRN (17:15)
[2019-07-04] MEDS ORDERED: MEASLES,MUMPS,RUBELLA 1 EA INJ SQ ONE (17:15)
--- NOTE | 2019-07-04 17:18 | OB Labor & Delivery Record ---
L&D History Date of Service Date of Service: Jul 04, 2019 History Expected Date of Delivery: Jul 15, 2019 Gestational Age in Weeks: 38 Hx : 3 Hx Para: 1 Complications Events: Routine care Abnormal quad Operative Indications (Cesarea: N/A-Vaginal Delivery Intrapartal Events: None L&D Stage1 Stage One Onset of Labor - Date: Jul 04, 2019 Monitors and Tracing Monitor Mode: External Heart Rate: 130 Station: -1 Snf Variability: Average (6-10) Short Term Variability: Present Presentation: Vertex Vital Signs VS - Last 72 Hours, by Label 07/04/19 07/04/19 07/04/19 07/04/19 09:40 10:30 11:15 11:35 Temp 99.0 Pulse 76 95 Resp 16 B/P (MAP) 123/76 (92) 128/72 (90) Pulse Ox 100 O2 Delivery Room Air Room Air Room Air Room Air 07/04/19 07/04/19 07/04/19 07/04/19 11:45 11:51 11:53 11:54 Temp 99.0 Pulse 96 88 94 85 Resp 18 16 16 B/P (MAP) 126/76 (93) 136/77 (96) 120/72 (88) 108/67 (81) Pulse Ox 99 99 98 98 O2 Delivery Room Air Room Air Room Air 07/04/19 07/04/19 07/04/19 07/04/19 11:58 12:00 12:15 12:30 Temp 98.5 Pulse 87 108 92 91 Resp 16 16 16 16 B/P (MAP) 107/64 (78) 125/60 (81) 119/76 (90) 118/70 (86) Pulse Ox 100 98 99 99 O2 Delivery Room Air Room Air Room Air Room Air 07/04/19 07/04/19 07/04/19 07/04/19 12:45 13:00 13:15 13:30 Pulse 91 84 84 84 Resp 16 16 16 16 B/P (MAP) 118/70 (86) 112/68 (83) 119/68 (85) 119/68 (85) Pulse Ox 99 100 100 100 O2 Delivery Room Air Room Air Room Air Room Air 07/04/19 07/04/19 07/04/19 07/04/19 13:45 14:00 14:15 14:30 Pulse 84 82 85 83 Resp 16 16 16 16 B/P (MAP) 119/68 (85) 111/60 (77) 118/60 (79) Pulse Ox 100 100 100 100 O2 Delivery Room Air Room Air Room Air Room Air Rupture of Membranes Spontaneous Ruture of Membrane: No Amniotic Membrane Rupture Time: 1201 Amniotic Membrane Fluid Desc.: Clear Vaginal Bleeding Description: Normal Show Induction/Anesthesia Epidural Cath Placement - Time: 1135 Progress/Notes Pitocin augmentation used after AROM using José protocol L&D Stage2 Stage Two Stage II Date: Jul 04, 2019 Monitors and Tracing Monitor Mode: External Heart Rate: 130 Monitor Accelerations: Uniform Monitor Decelerations: Variable Tableau Architect Variability: Average (6-10) Short Term Variability: Present Position: Right Occiput Anterior Presentation: Vertex Cord Descript/Complications Cord Vessel Description: 3 Vessels Delivery Type Delivery Method: Spontaneous Vaginal Anterior Shoulder: Right Episiotomy/Perineal Laceration Laceraction(s)/Extensions: No Condition of Delivery 1 minute Comment: 7 5 minute Comment: 9 Notes Live male infant weight 8 lbs Condition of Infant Condition of Infant: Living Exam: No Observed Abnormalities Resuscitation Resuscitation: N/A - Spontaneous Resp L&D Stage3 Stage Three Stage III Date: Jul 04, 2019 Pictocin Pitocin Administration mu/min: 2 Pitocin ml/hr: 2 Pitocin Administration Comment: 30 mu /wide open at delivery of placenta Placenta Delivery Placenta Delivery: Spontaneous Delivery Summary Summary Estimated blood loss (mL): 350 Attending at delivery: Campbell Sierra DO Condition of Delivery Examined: Cervix Examined, Uterus Explored Post Hemorrhage: No Condition of Mother stable Condition of (s) stable CAMPBELL SIERRA DO Jul 04, 2019 5:18 pm
[2019-07-04] MEDS ORDERED: ACHD5005 PO (17:19)
[2019-07-04] MEDS ORDERED: IBUP-844 PO (17:19)
[2019-07-04] MEDS ORDERED: DOCU100C37 PO (17:19)
[2019-07-04] MEDS ORDERED: Benzocaine/Menthol TP (17:19)
--- NOTE | 2019-07-04 17:20 | Discharge Inst-Women's Service ---
Discharge Inst-Women's Serv Depart Medication/Instructions New, Converted or Re-Newed RX: RX on Chart Final Diagnosis PPD 2 NVD Problems Reviewed?: Yes Consults/Follow Up Additional Follow Up: Yes Orders/Referrals Dr. Sierra in 6 weeks Activity Activity: Activity as Tolerated Driving Instructions: No Driving for 1 Week NO SMOKING: NO SMOKING Nothing Inside Vagina: No Douching, No [place], No Tampons Diet Discharge Diet: No Restrictions Symptoms to Report to : Bleeding Excessive, Pain Increased, Fever Over 101 Degrees F, Vaginal Bleeding Increase, Questions/Concerns For Any Problems or Questions: Contact Your Physician CAMPBELL SIERRA DO Jul 04, 2019 5:20 pm
[2019-07-04] MEDS: IBUPROFEN 600 MG (MOTRIN) TAB PO SCH (18:22)
--- NOTE | 2019-07-04 19:50 | NUR ---
Pt. was able to ambulate to bathroom without difficulty. No void since delivery. Pt. transferred to room 310 at this time via wheelchair, accompanied by staff, infant, and . Pt. oriented to room, call light, room service, and thermostat. info packet given and explain. Toiletries and ice water provided. No questions or concerns voiced at this time. Will continue to monitor.
[2019-07-04] MEDS: DOCUSATE SODIUM 100 MG (COLACE) CAP PO SCH (20:58)
[2019-07-05 00:05] VITALS: BP 79/47
[2019-07-05] MEDS: IBUPROFEN 600 MG (MOTRIN) TAB PO SCH ×3 (00:08→12:44)
[2019-07-05 05:05] VITALS: BP 111/69
[2019-07-05 06:43] LABS: BASOPHILS % (AUTO) 0 % (0-10); EOSINOPHILS % (AUTO) 0 % (0-10); HEMATOCRIT 30 % (35-52); LYMPHOCYTES # (AUTO) 2.1 X 10^3 (1.0-4.0); LYMPHOCYTES % (AUTO) 22 % (12-44); MEAN CORPUSCULAR HEMOGLOBIN 33 PG (25-34); MEAN CORPUSCULAR HGB CONC 34 G/DL (32-36); MEAN CORPUSCULAR VOLUME 98 FL (80-99); MEAN PLATELET VOLUME 10.5 FL (7.4-10.4); MONOCYTES # (AUTO) 1.1 X 10^3 (0.0-1.0); MONOCYTES % (AUTO) 11 % (0-12); NEUTROPHILS # (AUTO) 6.6 X 10^3 (1.8-7.8); NEUTROPHILS % (AUTO) 67 % (42-75); PLATELET COUNT 172 10^3/uL (130-400); RED CELL DISTRIBUTION WIDTH 12.9 % (10.0-14.5); WHITE BLOOD COUNT 9.9 10^3/uL (4.3-11.0)
[2019-07-05] MEDS ORDERED: PRENATAL VITAMIN 1 EA TAB PO SCH (07:00)
--- NOTE | 2019-07-05 07:27 | Postpartum Progress Note ---
Note Note Day # 1 Subjective: Patient is without complaints. Ambulating, voiding. Tolerating a regular diet without nausea or vomiting. Normal lochia. Pain is well controlled with oral pain medications. Objective: Physical Exam: General - Alert and oriented, no apparent distress Abdomen - Soft, appropriately tender to palpation, non-distended, fundus firm at umbilicus Extremities - no edema, negative Radha's bilaterally Assessment: PPD 1 NVD Acute blood loss anemia Plan: Routine care. Encourage breast feeding. Encourage ambulation. Ferrous sulfate supplementation. Plan for discharge tomorrow Vitals - Labs Vital Signs - I&O Vital Signs Date Time Temp Pulse Resp B/P (MAP) Pulse Ox O2 Delivery O2 Flow Rate FiO2 07/05/19 05:05 97.9 81 16 111/69 (83) 100 Room Air 07/05/19 00:05 97.1 78 16 79/47 (58) 98 Room Air 07/04/19 19:30 98.4 78 16 106/64 (78) Room Air 07/04/19 19:00 85 121/73 (89) 07/04/19 18:45 82 109/60 (76) 07/04/19 18:30 78 118/58 (78) 07/04/19 18:15 73 16 118/59 (78) 07/04/19 18:00 88 16 123/57 (79) 07/04/19 17:45 83 16 118/58 (78) 07/04/19 17:30 99.1 83 16 114/58 (76) 07/04/19 17:15 117 58 117/58 (77) 16 Room Air 07/04/19 17:00 86 16 111/52 (71) Room Air 07/04/19 16:30 82 16 124/69 (87) 100 Room Air 07/04/19 16:15 82 16 124/69 (87) 100 Room Air 07/04/19 16:00 98.7 85 16 128/72 (90) 100 Room Air 07/04/19 15:45 87 16 124/71 (88) 100 Room Air 07/04/19 15:30 16 100 Room Air 07/04/19 15:15 99.7 85 16 112/70 (84) 100 Room Air 07/04/19 15:00 84 16 116/66 (83) 100 Room Air 07/04/19 14:45 79 16 117/72 (87) 100 Room Air 07/04/19 14:30 83 16 118/60 (79) 100 Room Air 07/04/19 14:15 85 16 100 Room Air 07/04/19 14:00 82 16 111/60 (77) 100 Room Air 07/04/19 13:45 84 16 119/68 (85) 100 Room Air 07/04/19 13:30 84 16 119/68 (85) 100 Room Air 07/04/19 13:15 84 16 119/68 (85) 100 Room Air 07/04/19 13:00 84 16 112/68 (83) 100 Room Air 07/04/19 12:45 91 16 118/70 (86) 99 Room Air 07/04/19 12:30 91 16 118/70 (86) 99 Room Air 07/04/19 12:15 92 16 119/76 (90) 99 Room Air 07/04/19 12:00 98.5 108 16 125/60 (81) 98 Room Air 07/04/19 11:58 87 16 107/64 (78) 100 Room Air 07/04/19 11:54 85 108/67 (81) 98 07/04/19 11:53 94 16 120/72 (88) 98 Room Air 07/04/19 11:51 88 16 136/77 (96) 99 Room Air 07/04/19 11:45 99.0 96 18 126/76 (93) 99 Room Air 07/04/19 11:35 95 16 128/72 (90) 100 Room Air 07/04/19 11:15 Room Air 07/04/19 10:30 Room Air 07/04/19 09:40 99.0 76 123/76 (92) Room Air I & O 07/05/19 07:00 Intake Total 4200 ml Output Total 700 ml Balance 3500 ml Labs Laboratory Tests 07/04/19 10:20: White Blood Count 11.1H, Red Blood Count 3.51L, Hemoglobin 11.4L, Hematocrit 34L , Mean Corpuscular Volume 96, Mean Corpuscular Hemoglobin 32, Mean Corpuscular Hemoglobin Concent 34, Red Cell Distribution Width 13.0, Platelet Count 214, Mean Platelet Volume 10.3, Neutrophils (%) (Auto) 74, Lymphocytes (%) (Auto) 18, Monocytes (%) (Auto) 8, Eosinophils (%) (Auto) 0, Basophils (%) (Auto) 0, Neutrophils # (Auto) 8.2H, Lymphocytes # (Auto) 2.0, Monocytes # (Auto) 0.9, Eosinophils # (Auto) 0.0, Basophils # (Auto) 0.0 07/05/19 06:04: White Blood Count 9.9, Red Blood Count 3.02L, Hemoglobin 10.0L, Hematocrit 30L, Mean Corpuscular Volume 98, Mean Corpuscular Hemoglobin 33, Mean Corpuscular Hemoglobin Concent 34, Red Cell Distribution Width 12.9, Platelet Count 172, Mean Platelet Volume 10.5H, Neutrophils (%) (Auto) 67, Lymphocytes (%) (Auto) 22, Monocytes (%) (Auto) 11, Eosinophils (%) (Auto) 0, Basophils (%) (Auto) 0, Neutrophils # (Auto) 6.6, Lymphocytes # (Auto) 2.1, Monocytes # (Auto) 1.1H, Eosinophils # (Auto) 0.0, Basophils # (Auto) 0.0 CAMPBELL SIERRA DO Jul 05, 2019 07:27
--- NOTE | 2019-07-05 07:30 | NUR ---
Dr. Kumar here to see pt.
[2019-07-05] MEDS: DOCUSATE SODIUM 100 MG (COLACE) CAP PO SCH (08:49)
[2019-07-05 08:52] VITALS: BP 104/70
[2019-07-05] MEDS ORDERED: FERROUS SULF 325 MG (IRON) TAB PO SCH (09:00)
[2019-07-05 12:42] VITALS: BP 110/75
--- NOTE | 2019-07-05 13:09 | Anesthesia-Regional Post-Op ---
Regional Patient Condition Mental Status: Alert, Oriented x3 Circulation: Same as Pre-Op Headache: Absent Sensation: Full Recovery Motor Block: Absent Post Op Complications Complications None Follow Up Care/Instructions Patient Instructions None needed. Anesthesia/Patient Condition Patient is doing well, no complaints, stable vital signs, no apparent adverse anesthesia problems. No complications reported per nursing. D/C home per [facility] Criteria: Yes NIKITA SALAS CRNA Jul 05, 2019 13:09
--- NOTE | 2019-07-05 19:00 | NUR ---
DISCHARGE INSTRUCTIONS EXPLAINED TO PT WITH COPY PROVIDED TO PT ALONG WITH PRESCRIPTIONS. PT NOTIFIED OF NEED TO SCHEDULE FOLLOW UP APPT. PT VERBALIZES UNDERSTANDING OF INSTRUCTIONS, AND SIGNS TO VERIFY. DENIES QUESTIONS OR NEEDS AT THIS TIME.
--- NOTE | 2019-07-05 19:30 | NUR ---
Patient, s/o and escorted off of unit by [facility] staff to private vehicle at this time.
== END 2019-07-05 19:30 | disposition home or self-care (01) | DRG 806 ==
LOC: WSo 09:16 → LDRP 09:16 → WSo 09:59 → LDRP 20:23
PROVIDERS: ADMIT Obstetrics & Gynecology; ATTEND Obstetrics & Gynecology
PROC: 10E0XZZ Delivery of Products of Conception, External Approach (ICD-10-PCS; principal; 2019-07-04)
DX: O99.89 Other specified diseases and conditions complicating pregnancy, childbirth and the puerperium (principal); O28.0 Abnormal hematological finding on antenatal screening of mother; O90.81 Anemia of the puerperium; D62 Acute posthemorrhagic anemia; Z3A.38 38 weeks gestation of pregnancy; Z37.0 Single live birth; Z88.0 Allergy status to penicillin; Z88.6 Allergy status to analgesic agent; Z23 Encounter for immunization
CPT/HCPCS: 36415; 85025; 86850; 86900; 86901; 90715; 99212